=== PATIENT | female | born 1985 | race Hispanic/Latino ===

== ENCOUNTER 2017-03-03 17:54 | Emergency (ER) | payer BC ==
[2017-03-03 18:02] VITALS: BP 129/85; PULSE 85; RESP 16; TEMP 98.4; O2SAT 99
--- NOTE | 2017-03-03 18:46 | ED PDOC ---
HPI: Skin/Bite Injury Time Seen by Provider: 03/03/17 18:00 Chief Complaint (Nursing): Bite Chief Complaint (Provider): Dog Bite History Per: Patient History/Exam Limitations: no limitations Onset/Duration Of Symptoms: Mins Current Symptoms Are (Timing): Still Present Location Of Injury: Right: Foot (right big toe) Pain Scale Rating Of: 4 Additional Complaint(s): Georgina Akins, a 31 year old female, presents to the ED for a dog bite. The patient states she was bitten by her own dog. She reports that the dog is partially blind and she she moved her foot down off of a table and the dog bit her. Patient is unsure of her tetanus status. PMD: Kadi Stein S - Animal Bite Description Of The Attack: Unprovoked Attack Description Of The Animal: Family Pet Animal Appears: Well Animal's Immunization Status: UTD Past Medical History Reviewed: Historical Data, Nursing Documentation, Vital Signs Vital Signs: Last Vital Signs Temp 98.4 F 03/03/17 17:57 Pulse 85 03/03/17 17:57 Resp 16 03/03/17 17:57 BP 129/85 03/03/17 17:57 Pulse Ox 99 03/03/17 18:50 - Medical History PMH: No Chronic Diseases - Surgical History Surgical History: No Surg Hx - Family History Family History: States: Unknown Family Hx - Living Arrangements Living Arrangements: With Family - Social History Current smoker - smoking cessation education provided: No Ex-Smoker (has not smoked in the last 12 months): No Alcohol: Social Drugs: Denies - Immunization History Hx Tetanus Toxoid Vaccination: No - Home Medications Home Medications: Ambulatory Orders Medication Instructions Recorded Amoxicillin/Clavulanate [Augmentin 1 tab PO BID #20 tab 03/03/17 875 MG-125 MG] - Allergies Allergies/Adverse Reactions: Allergies Allergy/AdvReac Type Severity Reaction Status Date / Time acetaminophen [From Vicodin] Allergy RASH Verified 03/03/17 18:02 hydrocodone [From Vicodin] Allergy RASH Verified 03/03/17 18:02 Review of Systems ROS Statement: Except As Marked, All Systems Reviewed And Found Negative Musculoskeletal: Positive for: Other (Dog bite to right great toe) Physical Exam - Reviewed Nursing Documentation Reviewed: Yes Vital Signs Reviewed: Yes - Physical Exam Appears: Positive for: Non-toxic, No Acute Distress Head Exam: Positive for: ATRAUMATIC, NORMAL INSPECTION, NORMOCEPHALIC Skin: Positive for: Normal Color, Warm, Dry. Negative for: Rash Eye Exam: Positive for: Normal appearance. Negative for: Nystagmus ENT: Positive for: Normal ENT Inspection Neck: Positive for: Normal Respiratory: Negative for: Accessory Muscle Use, Respiratory Distress Extremity: Positive for: Normal ROM (normal ROM to right foot), Other (Small puncture wounds right big toe no active bleeding ). Negative for: Tenderness, Calf Tenderness, Deformity, Swelling Neurologic/Psych: Positive for: Alert, Oriented, Gait - ECG O2 Sat by Pulse Oximetry: 99 (RA) Pulse Ox Interpretation: Normal Medical Decision Making Medical Decision Makin Initial Impression 31 year old female presenting with dog bite Initial Plan: * Wound irrigated, antibiotic and dressing applied. Scribe Attestation Documented by Tiffanie Rowan acting as a scribe for Louise Patten PA-C. Scribe Attestation All medical record entries made by the Scribe were at my direction and personally dictated by me. I have reviewed the chart and agree that the record accurately reflects my personal performance of the history, physical exam, medical decision making, and the department course for this patient. I have also personally directed, reviewed, and agree with the discharge instructions and disposition. Disposition - Clinical Impression Clinical Impression: Animal bite wound, Tetanus toxoid vaccination administered at current visit - Patient ED Disposition Is Patient to be Admitted: No Counseled Patient/Family Regarding: Studies Performed - Disposition Disposition: Routine/Home Disposition Time: 18:50 Condition: STABLE Prescriptions: Amoxicillin/Clavulanate [Augmentin 875 MG-125 MG] 1 tab PO BID #20 tab Instructions: Animal Bite (ED) Forms: [facility] ([place]) - POA Present On Arrival: None
== END 2017-03-03 19:09 | disposition home or self-care (01) ==
LOC: H.ER 17:54
DX: T14.8XXA Other injury of unspecified body region, initial encounter (principal); W54.0XXA Bitten by dog, initial encounter; Y92.89 Other specified places as the place of occurrence of the external cause